=== PATIENT | female | born 1985 | race Caucasian/White ===

== ENCOUNTER 2017-01-02 12:52 | Inpatient (IN) | payer OTHER ==
[~2017-01-02 12:52] MED LIST: NO MEDICATIONS
[2017-01-02] MEDS ORDERED: PRENA1 CHEW TA1.4 M1 PO (14:31)
[2017-01-02 22:03] LABS: BASO % 0.4 % (0-2); EOS % 0.5 % (0-7); EOSINOPHIL ABSOLUTE COUNT 0.1 tho/cmm (0.0-0.7); HCT-HEMATOCRIT 38.2 % (34.0-49.0); HGB-HEMOGLOBIN 13.4 gm/dl (12.0-15.5); IMMATURE GRANULOCYTES ABSOLUTE 0.03 tho/cmm (0-0.03); IMMATURE GRANULOCYTES PERCENT 0.3 % (0-0.3); LYMPH % 23.1 % (20-45); LYMPH ABSOLUTE COUNT 2.6 tho/cmm (0.8-4.5); MCH (MEAN CORPUSCULAR HGB) 33.2 pg (28.0-32.0); MCHC MEAN CORPUSCULAR HGB CONC 35.1 % (32.0-36.0); MCV (MEAN CELL VOLUME) 94.6 fl (82.0-96.0); MEAN PLATELET VOLUME 9.6 cmc (9.4-12.4); MONO % 6.7 % (0-12); MONOCYTE ABSOLUTE COUNT 0.8 tho/cmm (0.0-1.2); NEUTROPHIL ABSOLUTE COUNT 7.8 tho/cmm (1.6-8.0); NEUTROPHIL-AUTOMATED 7.8 tho/cmm (1.6-8.0); PLATELET COUNT 237 tho/cmm (150-450); RED BLOOD COUNT 4.04 mil/cmm (4.00-5.20); RED CELL DISTRIBUTION WIDTH 12.3 % (12.4-16.4); WHITE BLOOD COUNT 11.3 tho/cmm (4.0-10.0)
== END 2017-01-03 19:03 | DRG 779 ==
LOC: LDR 12:52
PROVIDERS: Advanced Practice Midwife; ADMIT Advanced Practice Midwife
DX: O02.1 Missed abortion (principal)
CPT/HCPCS: J3010

== ENCOUNTER 2017-02-04 15:34 | Day surgery (SDC) | payer OTHER ==
[~2017-02-04 15:34] MED LIST changes: +PRENA1 CHEW TA1.4 M1 PO
[2017-02-04 16:46] LABS: HCT-HEMATOCRIT 42.3 % (34.0-49.0); HGB-HEMOGLOBIN 14.6 gm/dl (12.0-15.5); MCV (MEAN CELL VOLUME) 95.5 fl (82.0-96.0); RED CELL DISTRIBUTION WIDTH 12.2 % (12.4-16.4)
== END 2017-02-04 20:40 ==
LOC: WSU 15:34 → SHSB 15:37 → ORW 17:31 → PACU 18:23 → SHSB 18:35
PROVIDERS: Obstetrics & Gynecology
PROC: 10A07ZZ Abortion of Products of Conception, Via Natural or Artificial Opening (ICD-10-PCS; principal; 2017-02-04)
DX: O02.89 Other abnormal products of conception (principal); E66.9 Obesity, unspecified; Z88.0 Allergy status to penicillin